=== PATIENT | male | born 1965 | race Caucasian/White ===

== ENCOUNTER 2017-01-02 06:59 | Emergency (ER) | payer BC, OTHER ==
[2017-01-02 07:19] VITALS: BP 124/93
[2017-01-02 08:13] LABS: Anion Gap 26 mmol/L; Blood Urea Nitrogen 14 mg/dL (9-20); Calcium 9.7 mg/dL (8.4-10.2); Carbon Dioxide 21 mmol/L (22-30); Chloride 93.2 mmol/L (98-107); Glucose 389 mg/dL (75-100); Potassium 4.8 mmol/L (3.6-5.0); Sodium 135 mmol/L (137-145)
[2017-01-02 08:19] LABS: Basophils % (Auto) 0.8 % (0.0-1.8); Eosinophils % (Auto) 1.1 % (0.0-4.3); Hematocrit 45.4 % (35.5-45.6); Hemoglobin 15.1 gm/dl (11.8-15.2); Mean Corpuscular HGB Conc 33 % (32-34); Mean Corpuscular Hemoglobin 29 pg (28-32); Mean Corpuscular Volume 87 fl (84-94); Platelet Count 233 K/mm3 (140-440); Red Blood Count 5.21 M/mm3 (3.65-5.03); Red Cell Distribution Width 13.9 % (13.2-15.2); White Blood Count 7.4 K/mm3 (4.5-11.0)
--- NOTE | 2017-01-02 08:23 | XRay Report ---
CHEST 2 VIEWS INDICATION: Chest pain. COMPARISON: None similar at this institution. FINDINGS: PA and lateral chest radiographs demonstrate limited inspiration with exaggerated cardiomediastinal silhouette and prominent/crowded lung markings, more so toward the bases. No pleural effusions or CHF. Subtle nonspecific 6 mm peripheral left midlung nodular density projecting over the rib on the frontal view, not localized on the lateral. Intact bones. CONCLUSION: Limited inspiration and nonspecific subtle 6 mm left midlung nodular density, as described. Please correlate clinically, with prior chest imaging if available or on followup exams, as appropriate. Thank you for the opportunity to participate in this patient's care.
[2017-01-02 08:38] LABS: Creatine Kinase MB 1.2 ng/mL (0.0-4.0)
--- NOTE | 2017-01-02 11:57 | Emergency Department Report ---
HPI - General Chief Complaint: Chest Pain Time Seen by Provider: 01/02/17 11:37 - HPI HPI: This is a 51-year-old male who presents to the emergency Department with multiple complaints. The patient has been having a 2 day history of generalized chest pain feels like a pressure/tightness. It is intermittent but when it occurs it is intense at 9 out of 10. He also complains of a few days of a "lump" to the right side of the neck that is painful. He has a sore throat and feels like there is some type of "snake" or growth to the right side of the posterior oropharynx near his tonsil. He has some intermittent shortness of breath. He complains of a chronic umbilical hernia. And finally he complains of some recent testicular pain and swelling. He is from [place], but currently working in [place], and therefore does not have any local primary care physician. He has not taken anything for symptoms prior to presentation. He denies any past medical history. He denies tobacco use or illicit drug use or abuse. ED Past Medical Hx - Past Medical History Previous Medical History?: Yes Additional medical history: Abdominal Hernia - Surgical History Past Surgical History?: No Additional Surgical History: Stomach CA - Social History Smoking Status: Former Smoker Substance Use Type: Alcohol - Medications Home Medications: Home Medications Medication Instructions Recorded Confirmed Last Taken Type Ciprofloxacin HCl [Ciprofloxacin 500 mg PO DAILY #5 tablet 01/02/17 Unknown Rx TAB] Pantoprazole [Protonix TAB] 20 mg PO BID #60 tablet. 01/02/17 Unknown Rx ED Review of Systems ROS: Stated complaint: CHEST PAIN/FACIAL/THROAT PAIN Other details as noted in HPI Comment: All other systems reviewed and negative Constitutional: denies: chills, fever Eyes: denies: eye pain, eye discharge, vision change ENT: ear pain, throat pain Respiratory: shortness of breath. denies: cough Cardiovascular: chest pain. denies: edema Gastrointestinal: denies: nausea, vomiting Genitourinary: testicular pain. denies: urgency, dysuria Musculoskeletal: denies: back pain, joint swelling, arthralgia Skin: denies: rash, lesions Neurological: denies: headache, weakness, paresthesias Physical Exam - Physical Exam Vital Signs: Vital Signs 01/02/17 07:13 Temperature 98.3 F Pulse Rate 113 H Respiratory 22 Rate Blood Pressure 124/93 O2 Sat by Pulse 96 Oximetry Physical Exam: GENERAL: The patient is well-developed well-nourished. HEENT: Normocephalic. Atraumatic. Extraocular motions are intact. Patient has moist mucous membranes. Pupils equal reactive to light bilaterally. Oropharynx is clear without tonsillar hypertrophy, erythema, exudates. Bilateral normal-appearing external ear canals and tympanic membranes. NECK: Supple. Trachea is midline. Patient has a tender but mobile right lateral cervical lymph node. CHEST/LUNGS: Clear to auscultation. There is no respiratory distress noted. Chest pain is not reproducible palpation of chest wall. HEART/CARDIOVASCULAR: Regular. There is no tachycardia. There is no gallop rub or murmur. ABDOMEN: Abdomen is soft, nontender. Patient has normal bowel sounds. There is no abdominal distention. There is a reducible umbilical hernia. SKIN: Skin is warm and dry. : Normal-appearing penis and testicles. There is some reproducible tenderness to palpation of the testicles. NEURO: The patient is awake, alert, and oriented. The patient is cooperative. The patient has no focal neurologic deficits. The patient has normal speech and gait. MUSCULOSKELETAL: There is no tenderness or deformity. There is no limitation range of motion. There is no evidence of acute injury. ED Course Vital Signs 01/02/17 07:13 Temperature 98.3 F Pulse Rate 113 H Respiratory 22 Rate Blood Pressure 124/93 O2 Sat by Pulse 96 Oximetry ED Medical Decision Making - Lab Data Result diagrams: 01/02/17 07:21 01/02/17 07:21 - EKG Data -: EKG Interpreted by Me EKG shows normal: sinus rhythm, axis, intervals, QRS complexes, ST-T waves Rate: tachycardia (103 bpm) - EKG Data When compared to previous EKG there are: previous EKG unavailable Interpretation: normal EKG (sinus tachycardia at 103 bpm) - Radiology Data Radiology results: report reviewed, image reviewed interpreted by me: Chest x-ray did not show any acute process. Heart is normal shape and size. No effusions. No pneumothorax. No signs of pneumonia seen. Testicular/scrotal ultrasound does not show any acute process. The angiography of the chest shows no large central pulmonary arterial filling defects. Distal esophageal wall thickening noted. There is a hiatal hernia. Fatty liver. - Medical Decision Making 51-year-old male presents to the emergency Department with multiple complaints including ear pain, throat pain, chest pain, testicular pain. Patient's labs are mostly unremarkable. He did have a slightly elevated d-dimer so a CT angiography was done that did not show any pulmonary embolism. Patient has had negative troponins 3. The patient did have hyperglycemia but it came down without any insulin or intervention and there is no signs of DKA or HHNK. The plan was going to be to admit the patient to the hospital but the admitting hospitalist today consultation and decided to discharge patient home. - Differential Diagnosis ID, PE, costochondritis, pneumonia, pharyngitis Critical care attestation.: If time is entered above; I have spent that time in minutes in the direct care of this critically ill patient, excluding procedure time. ED Disposition Clinical Impression: Testicular pain Chest pain Qualifiers: Chest pain type: unspecified Qualified Code(s): R07.9 - Chest pain, unspecified Pharyngitis Qualifiers: Pharyngitis/tonsillitis etiology: unspecified etiology Qualified Code(s): J02.9 - Acute pharyngitis, unspecified Umbilical hernia Qualifiers: Obstruction and gangrene presence: without obstruction or gangrene Qualified Code(s): K42.9 - Umbilical hernia without obstruction or gangrene Disposition: OP ADMITTED IP TO THIS HOSP Is pt being admited?: Yes Condition: Stable Instructions: Chest Pain (ED) Prescriptions: Ciprofloxacin HCl [Ciprofloxacin TAB] 500 mg PO DAILY #5 tablet Pantoprazole [Protonix TAB] 20 mg PO BID #60 tablet. Referrals: PRIMARY CARE [Primary Care Provider] - 3-5 Days Time of Disposition: 18:21
[2017-01-02] MEDS ORDERED: BABY ASPIRIN PO ONE (13:08)
--- NOTE | 2017-01-02 13:56 | Ultrasound Report ---
Testicular ultrasound: Nonacute pain. The right testicle measures 28 x 38 x 42 mm and the left measures 22 x 30 x 44 mm. Both testicles are homogeneous with normal flow patterns. The right epididymis measures approximately 12 mm and the left measures 10 mm. Small amount of fluid seen present in the left sac. Impression: No significant findings.
[2017-01-02] MEDS ORDERED: NACL ONE ×2 (13:58→14:04)
[2017-01-02] MEDS ORDERED: MORPHINE IV ONE (14:20)
--- NOTE | 2017-01-02 15:33 | Admit Criteria Form ---
Admission Criteria Documentation: CHEST PAIN Clinical Indications for Admission to Inpatient Care (Place 'X' for any and all applicable criteria): Admission is indicated for chest pain and ANY ONE of the following(1)(2)(3)(4)(5 ): [ ]I. Angina with acute coronary syndrome (Also use Myocardial Infarction or Angina guideline) [ ]II. Hemodynamic instability [ ]III. Angina needing acute intervention as indicated by ALL of the following( 11)(12): [ ]a) Unstable angina is present as indicated by angina that is ANY ONE of the following: [ ]i) New onset [ ]ii) Nocturnal [ ]iii) Prolonged at rest [ ]iv) Progressive [ ]b) Angina warrants acute intervention as indicated by ANY ONE of the following: [ ]i) Recurrent angina (e.g, not responding as previously to treatment) [ ]ii) Angina at rest or with low-level activities despite initial medical therapy [ ]iii) New or presumably new ST-segment depression on ECG [ ]iv) Signs or symptoms of heart failure (eg, dyspnea, pulmonary edema) [ ]v) New or worsening mitral regurgitation [ ]vi) Hemodynamic instability [ ]vii) Dangerous arrhythmia (eg, sustained ventricular tachycardia) [ ]viii) History of percutaneous coronary intervention within 6 months [ ]ix) History of coronary artery bypass graft surgery [ ]x) AKI risk score of 2 or greater[A] [ ]xi) History of Diabetes(14) [ ]xii) High-risk cardiac ischemia findings on noninvasive testing (e.g, echocardiogram, treadmill testing, nuclear scan) [ ]xiii) Chronic renal insufficiency (ie, estimated GFR less than 60 mL/min/1.732m) [ ]xiv) Left ventricular ejection fraction less than 40% [ ]IV. Evidence of TX (eg, cardiac biomarkers positive, ST-segment elevation on ECG) also use Myocardial Infarction Criteria Form. [ ]V. Pulmonary edema [ ]. Respiratory distress [ ]VII. Chest pain indicative of serious diagnosis other than coronary artery disease (eg, aortic dissection) [ ]VIII. Contraindications and/or Inappropriate clinical situations for Observational Care in patients with Chest Pain, when ANY ONE of the following is required: [ ]a) Patient with risk factor for pulmonary embolism, acute coronary syndrome and myocardial infarction (18) [ ]b) Patient with Pulmonary embolism require an average LOS of 4.3 days, therefore emergency department observation management is inappropriate 18,23 [ ]c) Painful condition/s in the elderly, have the highest rate of recidivism after emergency department observation management (10.8%) 20,21,22 [ ]d) Elevated cardiac biomarker requires intensive and exhaustive care (19) [ ]IX. General contraindications and/or Inappropriate clinical situations for Observational Care in patients with Chest Pain, when ANY ONE of the following is required: [ ]a) Prediction of prolongation of LOS based on ANY ONE of the following may be considered as a contraindication for observational care 2, 3, 4, 5, 6, 7, 8, 9, 10, 11 [ ]i) Age > 65 yrs. [ ]ii) Patient arriving by ambulance [ ]iii) Patient with high acuity [ ]iv) Patient requiring vital sign monitoring [ ]v) Patient on IV medication [ ]b) Systolic blood pressures 180mmHg 3,12 [ ]c) Patient with altered mental status including delirium and other alteration of consciousness, (3) [ ]d) Patient whose discharge disposition will be to a shelter home or rehabilitation home should not be managed in Emergency Department Observation Unit. CMS rule requires 3 days hospital stay before such placement. 3,13 [ ]e) Patient with failure to thrive due to broad array of etiologies 3,16,17 [ ]f) Inability to ambulate 3,14 Extended stay beyond goal length of stay may be needed for (1)(28): [ ]a) Specific condition diagnosed after evaluation (eg, pulmonary embolism, aortic dissection) [ ]b) Unstable angina [ ]c) Continued suspicion of acute coronary syndrome with inability to complete needed cardiac evaluation (eg, patient clinically unable to undergo stress testing) [ ]d) Myocardial infarction (Contents from ANGINA and CHEST PAIN clinical indications for admission to inpatient care have been integrated in this form) The original [employer] content created by [employer] has been revised. The portions of the content which have been revised are identified through the use of italic text or in bold, and [email or web address] has neither reviewed nor approved the modified material. All other unmodified content is copyright [employer]. Please see references footnoted in the original [employer] edition 2016
--- NOTE | 2017-01-02 15:40 | Cat Scan Report ---
CTA CHEST INDICATION: Elevated D dimer, chest pain. COMPARISON: None similar at this institution. FINDINGS: Chest CTA performed following intravenous administration of 100 cc of Omnipaque 350. Rotational MIP's also obtained. Normal heart size. Slightly prominent pericardial fat pad. No aortic aneurysm or dissection. Slight aortic atherosclerotic calcifications. Suboptimal peak pulmonary arterial opacification, though without large central suspicious filling defects. No effusions or significant adenopathy. Patent central airway. Normal imaged thyroid. Mid to distal esophageal wall thickening may represent hiatal hernia and/or gastroesophageal reflux, amongst others with few small paraesophageal lymph nodes and herniated mesenteric fat, measuring approximately 5.6 cm AP x 9.2 cm transverse on axial image 168, series 2. Small right apical bullae. Mild increased AP chest diameter. Approximately 7 mm left mid lung calcified granuloma may correspond to the chest radiographic appearance from earlier today. Imaged upper abdomen demonstrates diffuse fatty hepatic infiltration. Mild imaged spinal degenerative changes. CONCLUSION: 1. No large central pulmonary arterial filling defects on this technically suboptimal exam, as described. 2. Distal esophageal wall thickening noted. GI/endoscopic correlation may be obtained to exclude underlying neoplasm, if warranted. 3. Other incidental findings, including hiatal hernia and fatty liver, amongst others, as above. Thank you for the opportunity to participate in this patient's care.
--- NOTE | 2017-01-02 16:14 | Consultation ---
Medications and Allergies Allergies Allergy/AdvReac Type Severity Reaction Status Date / Time No Known Allergies Allergy Unverified 01/02/17 07:13 Home Medications Medication Instructions Recorded Confirmed Last Taken Type Pantoprazole [Protonix TAB] 20 mg PO BID #60 tablet. 01/02/17 Unknown Rx Exam - Constitutional Vitals: Temp Pulse Resp BP Pulse Ox 98.3 F 113 H 18 124/93 96 01/02/17 07:13 01/02/17 07:13 01/02/17 13:30 01/02/17 07:13 01/02/17 13:30 Results - Labs CBC & Chem 7: 01/02/17 07:21 01/02/17 07:21 Labs: Abnormal lab results 01/02/17 01/02/17 01/02/17 Range/Units 07:21 07:21 07:21 RBC 5.21 H (3.65-5.03) M/mm3 Lymph % (Auto) 12.3 L (13.4-35.0) % [place] % (Auto) 12.5 H (0.0-7.3) % Lymph # 0.9 L (1.2-5.4) K/mm3 [place] # 0.9 H (0.0-0.8) K/mm3 Seg Neutrophils % 73.3 H (40.0-70.0) % D-Dimer (0-234) ng/mlDDU Sodium 135 L (137-145) mmol/L Chloride 93.2 L (98-107) mmol/L Carbon Dioxide 21 L (22-30) mmol/L Glucose 389 H (75-100) mg/dL POC Glucose (70-105) Total Creatine Kinase 40 L (55-170) units/L 01/02/17 01/02/17 Range/Units 12:40 15:38 RBC (3.65-5.03) M/mm3 Lymph % (Auto) (13.4-35.0) % [place] % (Auto) (0.0-7.3) % Lymph # (1.2-5.4) K/mm3 [place] # (0.0-0.8) K/mm3 Seg Neutrophils % (40.0-70.0) % D-Dimer 343.34 H (0-234) ng/mlDDU Sodium (137-145) mmol/L Chloride (98-107) mmol/L Carbon Dioxide (22-30) mmol/L Glucose (75-100) mg/dL POC Glucose 187 H (70-105) Total Creatine Kinase (55-170) units/L
== END 2017-01-02 16:38 | disposition admitted as inpatient to this hospital (09) ==
LOC: ED 06:59
DX: R07.89 Other chest pain (principal); J02.9 Acute pharyngitis, unspecified; K42.9 Umbilical hernia without obstruction or gangrene; N50.819 Testicular pain, unspecified; Z87.891 Personal history of nicotine dependence; C16.9 Malignant neoplasm of stomach, unspecified
CPT/HCPCS: 36415; 71020; 71275; 80048; 82550; 82553; 82962; 83880; 84484; 85025; 85379; 87116; 87430; 93005; 93010; 93975; 96374; 99285; J2270; Q9967